=== PATIENT | female | born 1990 | race Caucasian/White ===

== ENCOUNTER 2020-02-03 12:33 | Emergency (ER) | payer BC, MEDICAID, SELFPAY ==
--- NOTE | ~2020-02-03 | XR_ITS ---
EXAMINATION: XR chest 2V DATE: 02/03/2020 13:01 INDICATION: Right chest pain on inspiration. TECHNIQUE: Frontal and lateral views of the chest were obtained. COMPARISON: CT abdomen and pelvis 03/07/2017 FINDINGS: The chest demonstrates clear lungs without pneumonia, pleural effusion, or pneumothorax. Th e heart size is normal. IMPRESSION: 1. No acute cardiopulmonary disease. Reviewed, dictated and finalized at location A.
[2020-02-03 12:44] VITALS: BP 130/80; PULSE 99; RESP 20; TEMP 36.2; O2SAT 100
--- NOTE | 2020-02-03 13:27 | ED.GENADULT ---
HPI - General Adult General Chief complaint: Unspecified Stated complaint: rib pain Time Seen by Provider: 02/03/20 13:06 History of Present Illness HPI narrative: Pain over the right chest wall for the past few days. Only present when she coughs or takes a deep breath, although she says that she has barely been coughing. Mild in severity. No SOB, fever, nausea, vomiting. Related Data Allergies Allergy/AdvReac Type Severity Reaction Status Date / Time Sulfa (Sulfonamide Allergy Unknown Hives Verified 02/03/20 12:46 Antibiotics) Review of Systems Review of Systems: All systems reviewed & are unremarkable except as noted in HPI and below Constitutional: Constitutional: Denies chills and Denies fever(s) Cardiovascular: Cardiovascular: Denies chest pain with activity Respiratory: Respiratory: Denies cough and Denies dyspnea Gastrointestinal: Gastrointestinal: Reports no additional gastrointestinal complaints Neurologic: Reports system reviewed and no additional complaints, except as documented PMFSH Past Medical History Medical History Healthy adult Social History Social History Smoking status: Never smoker Exam Const: General: cooperative, healthy appearing, comfortable and no acute distress Nutritional Appearance: well nourished Orientation/consciousness: patient oriented x3 HENMT: Head: normal to inspection Neck: Neck: normal visual inspection Chest: Chest palpation & inspection: normal inspection of the chest and tenderness costochondral junction Resp: Effort & Inspection: normal respiratory effort Auscultation: clear to auscultation bilaterally Cardio: Rate: regular rate Rhythm: regular rhythm Heart sounds: no murmurs GI: GI Palp: Yes Soft to palpation and No Tenderness to palpation present (GI) Skin: General skin exam: normal color Neuro: General: patient oriented x3 Cognition (Neuro): normal cognition Speech: normal speech Gait exam (Neuro): Normal gait present Course Vital Signs Vital signs: Vital Signs Temperature 36.2 C L 02/03/20 12:44 Pulse Rate 99 02/03/20 12:44 Respiratory Rate 20 02/03/20 12:44 Blood Pressure 130/80 02/03/20 12:44 Pulse Oximetry 100 02/03/20 12:44 Temperature 36.7 C 02/03/20 13:53 Pulse Rate 74 02/03/20 13:53 Respiratory Rate 18 02/03/20 13:53 Blood Pressure 124/74 02/03/20 13:53 Pulse Oximetry 99 02/03/20 13:53 Medical Decision Making Vital Signs Vital Signs: Vital Signs Temperature 36.2 C L 02/03/20 12:44 Pulse Rate 99 02/03/20 12:44 Respiratory Rate 20 02/03/20 12:44 Blood Pressure 130/80 02/03/20 12:44 Pulse Oximetry 100 02/03/20 12:44 Temperature 36.7 C 02/03/20 13:53 Pulse Rate 74 02/03/20 13:53 Respiratory Rate 18 02/03/20 13:53 Blood Pressure 124/74 02/03/20 13:53 Pulse Oximetry 99 02/03/20 13:53 Discharge Plan Discharge Clinical Impression: Anterior chest wall pain Patient Disposition: Home, Self-Care Condition: Stable Instructions: Chest Wall Pain (ED) Prescriptions: New ibuprofen 600 mg tablet 600 mg PO QID PRN (Reason: pain) Qty: 30 RF: 0 Follow-up/Referrals: Beatrice Yousif MD [Physician] - PHYSICIAN,INFECTION CONTROL NURSE [Primary Care Provider] -
[2020-02-03 13:53] VITALS: BP 124/74; PULSE 74; RESP 18; TEMP 36.7; O2SAT 99
== END 2020-02-03 13:54 | disposition home or self-care (01) ==
PROVIDERS: Emergency Provider Emergency Medicine
DX: R07.89 Other chest pain (principal)
CPT/HCPCS: 71046; 99283

== ENCOUNTER 2023-11-18 11:13 | Emergency (ER) | payer BC, MEDICAID, SELFPAY ==
[2023-11-18 11:13] VITALS: BP 145/107; PULSE 122; RESP 16; TEMP 36.4; O2SAT 100
[2023-11-18 13:38] VITALS: O2SAT 100
--- NOTE | 2023-11-18 14:08 | ED.URI ---
HPI - URI/Sore Throat General Chief Complaint: Upper Respiratory Infection Stated Complaint: sore throat, chills/sweats Time Seen by Provider: 11/18/23 13:42 Source: patient Mode of arrival: ambulatory Limitations: no limitations History of Present Illness HPI Narrative: Patient presents with sore throat since Sunday. Also chills and sweaty. Lives with mom and son who are not sick. Took 2 tablets of ibuprofen at 2:15. Also trying an OTC liquid for sore throat and cough and tried Chloroseptic spray yesterday with minimal change. Occasionally has a dry cough. No history of strep throat or tonsillectomy. No history of DM. No known exposure to STI but does occasionally perform oral sex; last approximately 1 month ago. Related Data Allergies Allergy/AdvReac Type Severity Reaction Status Date / Time Sulfa (Sulfonamide Allergy Unknown Hives Verified 08/08/22 08:17 Antibiotics) [facility] Past Medical History Medical History Encounter for adjustment and management of other implanted devices Healthy adult Nexplanon removal Surgical History Surgical History History of placement of ear tubes Social History Social History (Updated 11/19/23 @ 22:24 by Dalila Alexander MD) Smoking status: Current every day smoker Tobacco type: cigarettes Alcohol intake: current Alcohol use details: occasional Substance use: never Living arrangements: with family Additional living arrangements comments: mother and son Occupation/Education: unemployed Additional occupation/education comments: stay at home mother Gender identity (if verbalized by the patient): Female Sexual Orientation (if Verbalized by the Patient): Straight or Heterosexual Exam Const: General: healthy appearing, no acute distress and alert; No diaphoretic Nutritional Appearance: well nourished Orientation/consciousness: patient oriented x3 Limitations: no limitations HENMT: Head: normal to inspection and no contusions Ears: external ears normal Face/Nose/Sinus: Normal external nose present and no epistaxis Face and sinus: normal facial exam Throat: uvula midline Other: posterior oropharynx with erythema; hypertrophic tonsills, nearly kissing with white plaques; airway patent though; no dysphonia or drooling Eyes: Conjunctivae: conjunctivae normal Direct Ophthalmoscopy: no photophobia Neck: Neck: normal visual inspection, no meningeal signs and lymphadenopathy (anterior cervical; bilateral) Resp: Effort & Inspection: normal respiratory effort, not labored, no retractions, not tachypneic and no use of accessory muscles Cardio: Rate: tachycardic (initially in triage; normal at the time of assessment) GI: GI Palp: Yes Soft to palpation Skin: General skin exam: normal color, no jaundice and no pallor Neuro: General: patient oriented x3, moves all extremities, no meningeal signs and no focal motor deficits Speech: normal speech Psych: Mental Status: mental status grossly normal Affect: normal affect, No Sad affect present and No Anxious affect present Attitude: cooperative Course Course Emergency Course: GENERAL: Well-appearing, well-nourished, and in no acute distress. HEAD: Normocephalic, atraumatic. EYES: Non injected, non icteric ENT: Nares clear, no rhinorrhea or epistaxis. NECK: Supple. CHEST: Speaking in full sentences. No respiratory distress. HEART: Regular rate and rhythm. . ABDOMEN: Soft, nondistended. EXTREMITIES: Normal range of motion. No edema. SKIN: Warm, dry, no rash. NEURO: No focal deficits. Alert and oriented x3. PSYCH: Normal mood and affect. Vital Signs Vital signs: Vital Signs Temperature 97.6 F 11/18/23 11:13 Pulse Rate 122 H 11/18/23 11:13 Respiratory Rate 16 11/18/23 11:13 Blood Pressure 145/107 H 11/18/23 11:13 Pulse Oximetry 100 11/18/23 11:13 Temperature 98.
[2023-11-18 14:12] LABS: Strep Group A RT-PCR DETECTED (Negative)
[2023-11-18 14:25] LABS: Influenza A QL RT-PCR Negative (Negative); Influenza B QL RT-PCR Negative (Negative); RSV RNA, RT-PCR Negative (Negative); SARS-CoV-2 RNA PCR Negative (Negative)
[2023-11-18 14:35] VITALS: BP 129/103; PULSE 89; O2SAT 98
[2023-11-18] MEDS: PENICILLIN V POTASSIUM 250 MG TABLET 500 MG PO (15:11)
[2023-11-18] MEDS: dexAMETHasone 2 MG TABLET 10 MG PO (15:11)
[2023-11-18 15:14] VITALS: BP 129/99; PULSE 88; RESP 18; TEMP 37.1; O2SAT 99
== END 2023-11-18 15:15 | disposition home or self-care (01) ==
PROVIDERS: Student in an Organized Health Care Education/Training Program; Emergency Provider Student in an Organized Health Care Education/Training Program
DX: J02.0 Streptococcal pharyngitis (principal); Z20.822 Contact with and (suspected) exposure to COVID-19; F17.210 Nicotine dependence, cigarettes, uncomplicated
CPT/HCPCS: 87637; 87651; 99283; A9270; J8540

== ENCOUNTER 2024-10-01 09:53 | Emergency (ER) | payer BC, MEDICAID, SELFPAY ==
[2024-10-01 10:00] VITALS: BP 140/104; PULSE 91; RESP 17; TEMP 36.8; O2SAT 99
[2024-10-01 10:06] VITALS: RESP 15
--- NOTE | 2024-10-01 10:18 | ED.GENADULT ---
HPI - General Adult General Chief complaint: Unspecified Stated complaint: left side of throat pain for 5 days Time Seen by Provider: 10/01/24 10:02 Source: patient Mode of arrival: ambulatory Limitations: no limitations History of Present Illness HPI narrative: This is a 33 year old female that presents to the ER for sore throat. Reports she feels like she has a lump in the back of her throat. No difficulty swallowing. Denies fevers. Related Data Allergies Allergy/AdvReac Type Severity Reaction Status Date / Time Sulfa (Sulfonamide Allergy Unknown Hives Verified 10/01/24 10:08 Antibiotics) Review of Systems Review of Systems: All systems reviewed & are unremarkable except as noted in HPI and below PMFSH Past Medical History Medical History Encounter for adjustment and management of other implanted devices Healthy adult Nexplanon removal Surgical History Surgical History History of placement of ear tubes Social History Social History (Updated 11/19/23 @ 22:24 by Dalila Alexander MD) Smoking status: Current every day smoker Tobacco type: cigarettes Alcohol intake: current Alcohol use details: occasional Substance use: never Living arrangements: with family Additional living arrangements comments: mother and son Occupation/Education: unemployed Additional occupation/education comments: stay at home mother Gender identity (if verbalized by the patient): Female Sexual Orientation (if Verbalized by the Patient): Straight or Heterosexual Exam Narrative: GENERAL: Well-appearing, well-nourished, and in no acute distress. HEAD: Normocephalic, atraumatic. EYES: EOMI. ENT: Nares clear, no rhinorrhea or epistaxis. Mucous membranes moist. Oropharynx with tonsillar hypertrophy and redness, no exudates or other lesions. No uvula deviation. No trismus. Bilateral TMs pearly bruce non-bulging. NECK: Supple. Tender anterior cervical adenopathy CHEST: Clear to auscultation. No respiratory distress. No wheezes rales or rhonchi HEART: Regular rate and rhythm. No murmur heard. Normal peripheral pulses. EXTREMITIES: Normal range of motion. No edema. SKIN: Warm, dry, no rash. NEURO: No focal deficits. Alert and oriented x3. PSYCH: Normal mood and affect Course Course Emergency Course: Patient updated on her workup and agrees with plan of care Vital Signs Vital signs: Vital Signs Temperature 98.2 F 10/01/24 10:00 Pulse Rate 91 10/01/24 10:00 Respiratory Rate 17 10/01/24 10:00 Blood Pressure 140/104 H 10/01/24 10:00 Pulse Oximetry 99 10/01/24 10:00 Oxygen Delivery Room Air 10/01/24 10:00 Temperature 98.2 F 10/01/24 10:00 Pulse Rate 91 10/01/24 10:00 Respiratory Rate 15 10/01/24 10:06 Blood Pressure 140/104 H 10/01/24 10:00 Pulse Oximetry 99 10/01/24 10:00 Oxygen Delivery Room Air 10/01/24 10:00 Medical Decision Making MDM Narrative Medical decision making narrative: Patient presents the emergency department for sore throat ongoing over the last 5 days. Patient is afebrile nontoxic appearing. Tonsils with symmetric tonsillar hypertrophy. No uvular deviation. No trismus. Strep screen is negative. Instructed on further care of likely viral infection. She is to follow up with primary provider. She was given warnings to return to the ER Differential Diagnosis Differential Diagnosis: Viral pharyngitis, strep pharyngitis Vital Signs Vital Signs: Vital Signs Temperature 98.2 F 10/01/24 10:00 Pulse Rate 91 10/01/24 10:00 Respiratory Rate 17 10/01/24 10:00 Blood Pressure 140/104 H 10/01/24 10:00 Pulse Oximetry 99 10/01/24 10:00 Oxygen Delivery Room Air 10/01/24 10:00 Temperature 98.2 F 10/01/24 10:00 Pulse Rate 91 10/01/24 10:00 Respiratory Rate 15 10/01/24 10:06 Blood Pressure 140/104 H 10/01/24 10:00 Pulse Oximetry 99 10/01/24 10:00 Oxygen Delivery Room Air 10/01/24 10:00 Lab Data Lab results reviewed: Yes I reviewed the patient's lab results. Labs: Lab Results 10/01/24 Range/Units 10:06 Group A Strep (PCR) Not detected (Negative) Critical Care Time Critical Care Time Critical Care Time: No Discharge Plan Discharge Clinical Impression: Pharyngitis Qualifiers: Pharyngitis/tonsillitis etiology: unspecified etiology Qualified Code(s): J02.9 - Acute pharyngitis, unspecified Patient Disposition: Home Condition: Stable Instructions: Pharyngitis (ED) Additional Instructions: Return to the emergency department for worsening symptoms, or any other concerns Remain well-hydrated, get plenty of rest. Take Tylenol or Motrin [id number] for pain as needed. Lozenges or Chloraseptic spray for sore throat. Follow up with primary care doctor Patient Language: Guinean Prescriptions: No Action Nexplanon 68 mg implant 1 implant subdermal ONCE Qty: 1 0RF penicillin V potassium 500 mg tablet 500 mg PO Q12H 10 Days Qty: 19 0RF Rx Instructions: received first dose in ED 11/18/23 afternoon Follow-up/Referrals: Blair Ruano MD [Physician] - PHYSICIAN,BUSINESS MACHINE OPERATOR [Primary Care Provider] -
[2024-10-01] MEDS: ACETAMINOPHEN 500 MG TABLET 1000 MG PO (10:28)
[2024-10-01 10:36] LABS: Strep Group A RT-PCR NOT DETECTED (Negative)
== END 2024-10-01 11:12 | disposition home or self-care (01) ==
PROVIDERS: Emergency Provider Physician Assistant
DX: J02.9 Acute pharyngitis, unspecified (principal); F17.210 Nicotine dependence, cigarettes, uncomplicated
CPT/HCPCS: 87651; 99283; A9270

== ENCOUNTER 2024-10-04 10:52 | Emergency (ER) | payer MEDICAID, SELFPAY ==
[2024-10-04 11:37] VITALS: BP 140/108; PULSE 103; RESP 16; TEMP 36.7; O2SAT 99
--- NOTE | 2024-10-04 15:01 | PC.NURSE ---
patient reports that she is going to leave and possible come back tomorrow if she dosent feel better. patient states that she does not want to wait. patient walked out without dificulty.
== END 2024-10-04 15:11 | disposition left against medical advice (07) ==
LOC: ANHED 15:10
DX: R19.7 Diarrhea, unspecified (principal)
CPT/HCPCS: 99199

== ENCOUNTER 2024-10-06 09:28 | Emergency (ER) | payer MEDICAID, BC, SELFPAY ==
--- NOTE | ~2024-10-06 | CT_ITS ---
EXAMINATION: CT abdomen pelvis w con DATE: 10/06/2024 13:37 INDICATION: Lower abdominal pain TECHNIQUE: Computed tomography (CT) of the abdomen and pelvis was performed with 100 mL Omnipaque-350 intravenous contrast. Automated exposure control and iterative reconstruction technique were employe d. The dose-length product was 348.35 mGy-cm. COMPARISON: None FINDINGS: Lung bases are clear. Heart size is normal. No pericardial or pleural effusion. Liver, gallbladder, s pleen, pancreas, bilateral adrenal glands and kidneys are normal. Bowels including the appendix are n ormal. Bladder, anteverted uterus and bilateral adnexa are unremarkable. No free intraperitoneal gas or fluid. No pathologically enlarged abdominal or pelvic lymphadenopathy. Bones are unremarkable. IMPRESSION: 1. No acute intra-abdominal/pelvic process. Reviewed, dictated and finalized at location B.
[2024-10-06 09:37] VITALS: BP 151/108; PULSE 95; RESP 16; TEMP 36.8; O2SAT 99
--- NOTE | 2024-10-06 12:11 | ED_ITS ---
HPI - Abdominal Pain General Chief Complaint: Abdominal Pain Stated Complaint: abd cramping, diarrhea Time Seen by Provider: 10/06/24 11:47 History of Present Illness HPI narrative: Pt presents with lower abdominal cramping and diarrhea since a trip to [place], Pt denies blood in stool. Pt asys the diarrhea is better than it was but still present. Pt denies fever or bloody stools. Related Data Allergies Allergy/AdvReac Type Severity Reaction Status Date / Time Sulfa (Sulfonamide Allergy Unknown Hives Verified 10/06/24 11:38 Antibiotics) Review of Systems 2 Review of Systems: All systems reviewed & are unremarkable except as noted in HPI and below PMFSH Past Medical History Medical History Encounter for adjustment and management of other implanted devices Healthy adult Nexplanon removal Surgical History Surgical History History of placement of ear tubes Social History Social History (Updated 11/19/23 @ 22:24 by Dalila Alexander MD) Smoking status: Current every day smoker Tobacco type: cigarettes Alcohol intake: current Alcohol use details: occasional Substance use: never Living arrangements: with family Additional living arrangements comments: mother and son Occupation/Education: unemployed Additional occupation/education comments: stay at home mother Gender identity (if verbalized by the patient): Female Sexual Orientation (if Verbalized by the Patient): Straight or Heterosexual Exam 2 Const: General: healthy appearing and no acute distress Nutritional Appearance: well nourished Orientation/consciousness: patient oriented x3 Limitations: no limitations HENMT: Mouth: Yes Normal oral and palatal mucosa present Resp: Effort & Inspection: normal respiratory effort Auscultation: clear to auscultation bilaterally Cardio: Rate: regular rate Rhythm: regular rhythm GI: GI Palp: Yes Soft to palpation and Yes Tenderness to palpation present (GI) (mild lower abdominal tenderness) Auscultation: normal bowel sounds Skin: General skin exam: normal color Rashes: no rashes Wounds: no wounds Neuro: General: patient oriented x3, moves all extremities and no focal motor deficits Speech: normal speech Extrem: General: normal to inspection and no clubbing, cyanosis or edema Psych: Mental Status: mental status grossly normal Affect: normal affect Course Vital Signs Vital signs: Vital Signs Temperature 98.3 F 10/06/24 09:37 Pulse Rate 95 10/06/24 09:37 Respiratory Rate 16 10/06/24 09:37 Blood Pressure 151/108 H 10/06/24 09:37 Pulse Oximetry 99 10/06/24 09:37 Temperature 97.7 F 10/06/24 14:04 Pulse Rate 76 10/06/24 14:04 Respiratory Rate 16 10/06/24 14:04 Blood Pressure 134/90 10/06/24 14:04 Pulse Oximetry 100 10/06/24 14:04 MDM - Abdominal Pain MDM Narrative Medical decision making narrative: Pt has diarrhea after trip to [place]. will check labs and give fluids and get CT abd pelvis to rule out colitis. If patient has diarrhea here will get stool studies. Pt has not had diarrhea here. discussed with pt. will try a course of cipro and a few lomotil. If diarrhea persists will give follow up with Dr Wynn and pt can get stool studies there. Lab Data 10/06/24 12:19 10/06/24 12:19 Labs: Lab Results 10/06/24 10/06/24 Range/Units 12:19 13:00 WBC 9.8 (4.5-10.0) K/mm3 RBC 5.34 (4.2-5.4) M/mm3 Hgb 16.9 H (12.0-15.0) g/dL Hct 50.1 H (37.0-47.0) % MCV 93.8 (80-100) fl MCH 31.6 (26-34) pg MCHC 33.7 (32-36) g/dl RDW 12.9 (11.5-14.5) % Plt Count 252 (150-375) k/mm3 MPV 10.3 (7.4-10.4) fl Immature Gran % (Auto) 0.3 (0-0.5) % Neut % (Auto) 66.5 (45.5-73.1) % Lymph % (Auto) 22.7 (18.3-44.2) % Dare % (Auto) 9.1 H (2.6-8.5) % Eos % (Auto) 0.7 (0-4.4) % Baso % (Auto) 0.7 (0.2-1.2) % Lymph # (Auto) 2.22 (0.9-3.2) K/mm3 Dare # (Auto) 0.9 H (0.1-0.6) K/mm3 Eos # (Auto) 0.1 (0-0.3) K/mm3 Baso # (Auto) 0.1 (0.0-0.1) K/mm3 Abs Immat Gran (auto) 0.03 (0.00-0.031) K/mm3 Absolute Neuts (auto) 6.5 (1.3-6.7) K/mm3 Absolute Nucleated RBC 0.000 (0.0-0.012) K/mm3 Nucleated RBC % 0.0 (0.0-0.2) % Sodium 136 L (137-145) mmol/L Potassium 4.0 (3.4-5.0) mmol/L Chloride 101 (98-107) mmol/L Carbon Dioxide 24 (22-30) mmol/L Anion Gap 11 (4-12) mmol/L BUN 11 (7-17) mg/dL Creatinine 0.57 L (0.7-1.0) mg/dL Estim Creat Clear Calc 109 ml/min Estimated GFR > 60 (59 - ) Glucose 89 (65-110) mg/dL Lactic Acid 2.3 H (0.7-2.0) mmol/L Calcium 9.6 (8.4-10.2) mg/dL Total Bilirubin 0.5 (0.2-1.3) mg/dL AST 59 H (14-36) U/L ALT 41 H (6-35) U/L Alkaline Phosphatase 107 (38-126) U/L Total Protein 7.9 (6.3-8.2) g/dL Albumin 4.3 (3.5-5.1) g/dL POC Urine HCG, Qual Negative (Negative) Imaging Data Radiologist's impression: ITS Impressions Abdomen/Pelvis CT 10/06/24 13:41 IMPRESSION: 1. No acute intra-abdominal/pelvic process. Discharge Plan Discharge Clinical Impression: Diarrhea Patient Disposition: Home Condition: Stable Instructions: Antibiotic Form, Acute Diarrhea (ED) Patient Language: Bahraini Prescriptions: New ciprofloxacin HCl [Cipro] 500 mg tablet 500 mg PO Q12H Qty: 20 0RF diphenoxylate-atropine [Lomotil] 2.5-0.025 mg tablet 1 tablet PO TID PRN (Reason: diarrhea) Qty: 7 0RF Follow-up/Referrals: PHYSICIAN,MANAGER DISTRIBUTION [Primary Care Provider] -
--- OUTSIDE RECORDS SUMMARY | 2024-10-06 12:22 | XMS_ITS | Clinical Summary ---
Author Organization [facility] [employer] Address [address] [place] [address] Care Team Providers Care Data Science And Iot Manager Name Role Phone Unavailable Primary Care Provider Unavailabl e Source Comments [facility] [employer],non-owned Affiliates and Associated Physician Practices is amultiple site organization consisting of ambulatory clinics and hospital sitesin [place], [place], [place] and [place]. This disclosure is being madepursuant to the Care Everywhere program and may not contain all information available regarding this patient. Last updated 17.[employer] Allergies Active Allergy Reactions Criticality Noted Date Comments Sulfa Drugs Nausea and/or Vomiting,Headache Medications * This document contains information received from the source organization and may not represent a complete record from that organization. * Be aware that medications may not be up to date on this document. Alwaysverify current medications with the patient. No known medications Active Problems Problem Noted Date Diagnosed Date Elevated liver enzymes 10/19/2010 Chlamydia infection 09/29/2010 Overview (09/30/2010): Chlamydia positive on urine LCR. Discussed with Adolescent Medicine and concern for [id number]-Yscamb, however pt had pelvic exam without cervical motion tenderness. Abdominal US with normal liver and no zaida-hepatic inflammation. Pt treated with Azithromycin 1 gram PO x 1. Discussed at length safe sex practices and having partner treated. Acute hepatitis 09/28/2010 Overview (09/30/2010): 19 yo female with elevated transaminase levels (ALT 1841 and AST 339 on admission, higher at PMD's office). High risk behaviors increase risk for viral hepatitis exposure. Sent admission labs for infectious and non-infectious causes. Albumin and coags are normal. UDS and acetaminophen level negative. Transaminases have been trending down since admission, significantly improved. Hepatitis screen is negative. Unclear etiology at this time, still concerning for infectious vs toxic vs non-infectious etiology. F-actin pending. Plan: HFP, CBC and GGT on SundayOctober 03 Follow up in GI clinic on SundayOctober 14 at 8am (family to be called sooner if worsening transaminases or other abnormal labs return). 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 Gender Identity Not on file Sexual Orientation Not on file Last Filed Vital Signs Vital Sign Reading Time Taken Comments Blood Pressure 104/63 10/19/2010 8:41 PM CDT Pulse 66 10/19/2010 8:41 PM CDT Temperature 36.7 C (98.1 F) 10/19/2010 3:00 PM CDT Respiratory Rate 20 10/19/2010 8:41 PM CDT Oxygen Saturation 97% 10/19/2010 5:36 PM CDT Inhaled Oxygen Concentration - - Weight 50.3 kg (111 lb) 10/19/2010 10:05 AM CDT Height 159.2 cm (5' 2.68) 10/19/2010 10:05 AM C DT Body Mass Index 19.87 10/19/2010 10:05 AM CDT Plan of Treatment Health Maintenance Due Date Last Done Comments DTAP/TDAP/TD VACCINES (1 - Tdap) 12/06/2011 HEPATITIS B VACCINE (1 of 3 - 19+ 3-dose series) 12/06/2011 COVID-19 VACCINE ( - 2023-2 5 season) 2023 DEPRESSION SCREENING 04/09/2024 INFLUENZA VACCINE (Season Ended) 2024 ZOSTER VACCINE (1 of 2) 2042 HEPATITIS C SCREENING Completed 09/27/2010 HIV SCREENING Completed 09/28/2010 HIB VACCINE Aged Out No longer eligi ble based on patient's age to complete this topic HPV VACCINE Aged Out No longer eligi ble based on patient's age to complete this topic MENINGOCOCCAL (Group B) VACC INE SHARED DECISION-MAKING Aged Out No longer eligibl e based on patient's age to complete this topic MENINGOCOCCAL GROUPS A/C/Y/W VACCINE Aged Out No longer eligible b ased on patient's age to complete this topic PNEUMOCOCCAL VACCINE Aged Out No long er eligible based on patient's age to complete this topic Procedures Procedure Name Priority Date/Time Associated Diagnosis Comments HIV-1 HIV-2 ANTIBODY + HIV P24 AG PANEL Routine 09/28/2010 9:00 AM CDT HEPATITIS SCREEN ACUTE STAT 09/27/2010 7:35 PM CDT from Last 3 Months or Most Recently Relevant to Health Maintenance Results * HIV-1 HIV-2 ANTIBODY + HIV P24 AG PANEL (09/28/2010 9:00 AM CDT) HIV1/2 Ab + P24 Ag Non-Reacti ve Non-Reacti ve [facility] BLOOD SPECIMEN / Unknown 09/28/2010 9:00 AM CDT 09/28/2010 9:10 AM CDT [facility] Rob Knox MD LAB - CHEMISTRY ORDERABLES Fi nal Result Performing Organization Address City/State/[facility] Co de Phone Number [facility] [address] [place] [address] * HEPATITIS SCREEN ACUTE (09/27/2010 7:35 PM CDT) Hepatitis A Virus Antibody IgM Non-reactive Non-react paola [facility] Hepatitis B Virus Surface Antigen Non-reactive Non-react paola [facility] Hepatitis B Core Virus Antibody IgM Non reactive Non-React paola [facility] Hepatitis C Antibody Screen Non-reactive Non-react paola [facility] Disclaimer HCV Nonreactive - Antibodies to HCV were not detected, result does not exclude early acute HCV infection. [facility] BLOOD SPECIMEN / Unknown 09/27/2010 7:35 PM CDT 09/27/2010 8:04 PM CDT us Milind Ralph MD LAB - CHEMISTRY ORDERABLES Roney watkins Result [facility] [address] [place] [address] from Last 3 Months or Most Recently Relevant to Health Maintenance
[2024-10-06 12:35] LABS: Basophils Absolute Auto 0.1 K/mm3 (0.0-0.1); Basophils Percent Auto 0.7 % (0.2-1.2); Eosinophils Absolute Auto 0.1 K/mm3 (0-0.3); Eosinophils Percent Auto 0.7 % (0-4.4); Hematocrit 50.1 % (37.0-47.0); Hemoglobin 16.9 g/dL (12.0-15.0); Immature Granulocyte Absolute 0.03 K/mm3 (0.00-0.031); Immature Granulocyte Percent A 0.3 % (0-0.5); Lymphocytes Absolute Auto 2.22 K/mm3 (0.9-3.2); Lymphocytes Percent Auto 22.7 % (18.3-44.2); Mean Corpuscular HGB Conc 33.7 g/dl (32-36); Mean Corpuscular Hemoglobin 31.6 pg (26-34); Mean Corpuscular Volume 93.8 fl (80-100); Mean Platelet Volume 10.3 fl (7.4-10.4); Monocytes Absolute Auto 0.9 K/mm3 (0.1-0.6); Monocytes Percent Auto 9.1 % (2.6-8.5); Neutrophils Absolute Auto 6.5 K/mm3 (1.3-6.7); Neutrophils Percent Auto 66.5 % (45.5-73.1); Platelet Count Result 252 k/mm3 (150-375); Red Blood Count 5.34 M/mm3 (4.2-5.4); Red Cell Distribution Width 12.9 % (11.5-14.5); White Blood Count 9.8 K/mm3 (4.5-10.0)
[2024-10-06 12:43] LABS: Lactic Acid Reflex 2.3 mmol/L (0.7-2.0)
[2024-10-06 12:45] LABS: Alanine Aminotransferase 41 U/L (6-35); Albumin Level 4.3 g/dL (3.5-5.1); Alkaline Phosphatase 107 U/L (38-126); Anion Gap 11 mmol/L (4-12); Aspartate Amino Transferase 59 U/L (14-36); Bilirubin,Total 0.5 mg/dL (0.2-1.3); Blood Urea Nitrogen 11 mg/dL (7-17); Calcium 9.6 mg/dL (8.4-10.2); Carbon Dioxide 24 mmol/L (22-30); Chloride 101 mmol/L (98-107); Estimated CRCL calculation 109 ml/min; Estimated Glomerular Filt Rate > 60; Glucose 89 mg/dL (65-110); Sodium 136 mmol/L (137-145); Total Protein 7.9 g/dL (6.3-8.2)
[2024-10-06 13:24] LABS: BEDSIDEPREGUCG Negative (Negative)
[2024-10-06 14:04] VITALS: BP 134/90; PULSE 76; RESP 16; TEMP 36.5; O2SAT 100
[2024-10-06 14:31] LABS: Reflex Lactic Acid Yes or No Add Lactic
== END 2024-10-06 14:10 | disposition home or self-care (01) ==
PROVIDERS: Emergency Provider Emergency Medicine
DX: R19.7 Diarrhea, unspecified (principal); F17.210 Nicotine dependence, cigarettes, uncomplicated
CPT/HCPCS: 36415; 74177; 80053; 81025; 83605; 85025; 99284; Q9967

== ENCOUNTER 2024-12-22 10:10 | Emergency (ER) | payer BC, MEDICAID, SELFPAY ==
[2024-12-22 10:19] VITALS: BP 119/85; PULSE 86; RESP 16; TEMP 36.4; O2SAT 99
[2024-12-22 10:34] LABS: EDSTREPNEGPOS1 Positive (Negative)
--- NOTE | 2024-12-22 11:02 | ED_ITS ---
HPI - URI/Sore Throat General Chief Complaint: Upper Respiratory Infection Stated Complaint: Sore Throat Time Seen by Provider: 12/22/24 10:50 Source: patient and RN notes reviewed Mode of arrival: ambulatory Limitations: no limitations History of Present Illness HPI Narrative: 34-year-old female presents [facility] complaining of sore throat and left ear ache the last few days. Patient denies any other upper respiratory symptoms. Patient denies any cough, fevers, body aches, chills, nausea, vomiting, chest pain, difficulty breathing, difficulty swallowing, or any other symptoms. Patient has been taking Motrin to help with the pain. Patient states she has a history of chronic ear infections as a child has scarring. Related Data Allergies Allergy/AdvReac Type Severity Reaction Status Date / Time Sulfa (Sulfonamide Allergy Unknown Hives Verified 12/22/24 10:13 Antibiotics) Review of Systems Review of Systems: CONSTITUTIONAL: Denies fever, chills, body aches, or sweats. EYES: Denies visual changes, redness, or discharge. ENT: Positive for, sore throat, and otalgia. Negative for rhinorrhea or congestion. CARDIOVASCULAR: Denies chest pain, palpitations, or edema. RESPIRATORY: Negative for cough, wheezing, or dyspnea. GASTROINTESTINAL: Denies abdominal pain, nausea, vomiting, or diarrhea. GENITOURINARY: Denies dysuria or hematuria. SKIN: Denies rash or itching. MUSCULOSKELETAL: Denies back pain, joint pain, or myalgia. NEUROLOGIC: Denies headache, numbness, or weakness. PSYCHIATRIC: Denies anxiety or depression. All other systems reviewed are negative, except as documented in HPI. [facility] Past Medical History Medical History Nexplanon removal Encounter for adjustment and management of other implanted devices Healthy adult Surgical History Surgical History History of placement of ear tubes Social History Social History Smoking status: Current every day smoker Tobacco type: cigarettes Alcohol intake: current Alcohol use details: occasional Substance use: never Living arrangements: with family Additional living arrangements comments: mother and son Occupation/Education: unemployed Additional occupation/education comments: stay at home mother Gender identity (if verbalized by the patient): Female Sexual Orientation (if Verbalized by the Patient): Straight or Heterosexual Comments At the time of my signature, I reviewed and agree with the nursing past medical, surgical, social, and family history. There is no relevant family history pertinent to the patient complaint. Exam Narrative: GENERAL: This is a well-nourished, well-developed adult, in no apparent distress. They are non ill-appearing, nontoxic appearing. HEAD: normocephalic, atraumatic. EYES: Sclera clear/white. Vision is grossly intact. Conjunctiva normal bilaterally. Extraocular movements intact. EARS: External ears normal, auditory canals clear and without drainage, right TM without erythema or perforation. Left TM erythematous, bulging, without perforation. Hearing grossly intact. NOSE: External nose normal with no obvious nasal discharge, nasal turbinates erythematous, no rhinorrhea. THROAT: Mucous membranes moist, posterior pharynx erythematous without exudate. Tonsils erythematous with exudate present. There are 2+. Uvula is midline. NECK: Neck supple, non-tender without lymphadenopathy, masses or thyromegaly. CARDIOVASCULAR: Regular rate and rhythm without murmurs, gallops, or rubs. RESPIRATORY: Clear to auscultation. Breath sounds equal bilaterally. No wheezes, rales, or rhonchi. SKIN: warm, Dry, intact with no suspicious lesions or rash, good texture and turgor. NEURO: awake, alert, and oriented to person, place and time. There were no obvious focal neurologic abnormalities. EXTREMITIES: No joint tenderness, effusion, or edema noted. BACK: Nontender without deformity. Course Course Emergency Course: Portions of this record may have been created with voice recognition software Level of Care: Express Care Visit Vital Signs Vital signs: Vital Signs Temperature 97.6 F 12/22/24 10:19 Pulse Rate 86 12/22/24 10:19 Respiratory Rate 16 12/22/24 10:19 Blood Pressure 119/85 12/22/24 10:19 Pulse Oximetry 99 12/22/24 10:19 Temperature 97.6 F 12/22/24 10:19 Pulse Rate 86 12/22/24 10:19 Respiratory Rate 16 12/22/24 10:19 Blood Pressure 119/85 12/22/24 10:19 Pulse Oximetry 99 12/22/24 10:19 MDM - URI/Sore Throat MDM Narrative Medical decision making narrative: Rapid strep is positive. Patient has a left-sided otitis media as well. While treat with higher dose of amoxicillin cover strep throat and left-sided ear infection. Discussed physical exam findings. Advised supportive measures and signs/symptoms to go to the ER. Pt is appropriate for outpt treatment and f/u.. Differential Diagnosis Differential diagnosis: Likely upper respiratory infection, otitis media, sinusitis, viral infection and pharyngitis Lab Data Attestation: I reviewed the patient's lab results. Labs: Lab Results 12/22/24 Range/Units 10:31 POC Grp A Strep Screen Positive (Negative) Discharge Plan Discharge Clinical Impression: Pharyngitis Qualifiers: Pharyngitis/tonsillitis etiology: streptococcus Qualified Code(s): J02.0 - Streptococcal pharyngitis Otitis media Qualifiers: Otitis media type: suppurative Chronicity: acute Laterality: left Recurrence: not specified as recurrent Spontaneous tympanic membrane rupture: without spontaneous rupture Qualified Code(s): H66.002 - Acute suppurative otitis media without spontaneous rupture of ear drum, left ear Patient Disposition: Home Condition: Stable Instructions: Antibiotic Form, Strep Throat (ED), Ear Infection (ED) Additional Instructions: You tested positive for strep throat. ?Please take the amoxicillin as prescribed until gone. ?You will be contagious for 24 hours after starting the medication. ?After 24 hours on antibiotics throw tooth brush away and start using a new one. Wash your sheets and cup/water bottle that is used daily. Do not share drinks. You may take ibuprofen 600 mg to 800 mg every 6-8 hours. Do not exceed more than 800 mg of ibuprofen per dose. Do not exceed more than 3200 mg ibuprofen in a day. You may take up to 1000 mg Tylenol every 6-8 hours. Do not exceed 1000 mg per dose, do exceed more than 4000 mg of Tylenol in a day. ?Rest and stay hydrated. ?Follow up with your PCP in 3 days if symptoms are not improving. ?Go to the ER immediately if you develop worsening symptoms such as shortness of breath, difficulty swallowing. ? Patient Language: Kiswahili Prescriptions: New amoxicillin 875 mg tablet 875 mg PO Q12H 10 Days Qty: 20 0RF Follow-up/Referrals: PHYSICIAN,RESEARCH EPIDEMIOLOGIST [Primary Care Provider, Internal Medicine] Time of Disposition: 11:00
== END 2024-12-22 11:03 | disposition home or self-care (01) ==
DX: J02.0 Streptococcal pharyngitis (principal); H66.002 Acute suppurative otitis media without spontaneous rupture of ear drum, left ear; F17.210 Nicotine dependence, cigarettes, uncomplicated
CPT/HCPCS: 87880; 99213; G0463